=== PATIENT | male | born 2000 | race Caucasian/White ===

== ENCOUNTER 2018-07-29 18:11 | Emergency (ER) | payer BC, OTHER ==
[~2018-07-29] VITALS: Ht 172.7 cm; Wt 64.4 kg
[~2018-07-29 18:11] MED LIST: AMOX500C2 PO
--- OUTSIDE RECORDS SUMMARY | 2018-07-29 18:15 | XMS REPORT | Continuity of Care Document ---
Author Organization Unknown Address Unknown Allergies There is no data. Medications There is no data. Problems Date Dx Coded Attending Type Code Diagnosis Diagnosed By 05/02/2008 381.4 OTITIS MEDIA NONSUPPURATIVE RIGHT EAR 05/02/2008 381.4 OTITIS MEDIA NONSUPPURATIVE RIGHT EAR 05/02/2008 LELO ROBISON APRN 381.4 OTITIS MEDIA NONSUPPURATIVE RIGHT EAR 01/22/2009 V20.2 visit for: well child visit 01/22/2009 V20.2 visit for: well child visit 01/22/2009 LELO ROBISON APRN V20.2 visit for: well child visit 03/22/2009 719.44 PAIN IN JOINT, HAND 03/22/2009 719.44 PAIN IN JOINT, HAND 03/22/2009 LELO ROIBSON APRN 719.44 PAIN IN JOINT, HAND 06/17/2009 684 IMPETIGO 06/17/2009 684 IMPETIGO 06/17/2009 LELO ROBISON APRN 684 IMPETIGO 01/21/2010 V03.89 MENINGOCOCCAL VACCINE 01/21/2010 V05.3 HEPATITIS A VACCINE 01/21/2010 V06.5 DT, TETANUS-DIPHTHERIA [Td] ,TDAP 01/21/2010 V03.89 MENINGOCOCCAL VACCINE 01/21/2010 V05.3 HEPATITIS A VACCINE 01/21/2010 V06.5 DT, TETANUS-DIPHTHERIA [Td] ,TDAP 01/21/2010 LELO ROBISON APRN V03.89 MENINGOCOCCAL VACCINE 01/21/2010 LELO ROBISON APRN V05.3 HEPATITIS A VACCINE 01/21/2010 LELO ROBISON APRN V06.5 DT, TETANUS-DIPHTHERIA [Td] ,TDAP 05/02/2013 LELO ROBISON APRN V04.89 GARDASIL (HPV) DX Procedures Code Description [place] [address] Audiogram (Screening) 03/16/2012 87341 PURE TONE HEARING TEST AIR 05/02/2013 Results There is no data. Encounters ACCT No. Visit Date/Time Discharge Status Pt. Type Provider Facility Loc./Unit Complaint [id number] 05/02/2013 15:30:00 05/02/2013 23:59:59 CLS Outpatient LELO ROBISON APRN [id number] 03/16/2012 14:29:00 03/16/2012 23:59:59 CLS Outpatient [id number] 02/11/2011 14:30:00 02/11/2011 23:59:59 CLS Outpatient [id number] 02/10/2012 15:31:56 RECURRING
--- NOTE | 2018-07-29 19:01 | NUR ---
report given to osmin lindsey
[2018-07-29] MEDS ORDERED: AZITHROMYCIN 250 MG TAB (ZITHROMAX) PO ONE (19:15)
[2018-07-29] MEDS ORDERED: AMOXICILLIN 500 MG (POLYMOX) CAP PO STA (19:27)
[2018-07-29] MEDS ORDERED: AMOX500C2 PO (19:31)
--- NOTE | 2018-07-29 19:31 | ED EENT ---
History of Present Illness General Chief Complaint: Dental Problems/Pain Stated Complaint: DENTAL PAIN Nursing Triage Note: Pt reports having R sided upper and lower wisdom teeth out a couple of days ago. Pt c/o pain and bad taste in mouth. Pt is requesting antibiotics and a work note. Source: patient Exam Limitations: no limitations History of Present Illness Date Seen by Provider: July 29, 2018 Time Seen by Provider: 19:20 Initial Comments This 18-year-old young man presents to the emergency room with complaints of increased pain and a foul taste in his mouth after having the wisdom teeth resected on the right side. This was performed at [facility]. He has run out of his hydrocodone and has experienced increased pain since then. He is concerned that the foul taste in his mouth may represent infection. He is afebrile. Allergies and Home Medications Allergies Coded Allergies: Zoe Known Allergies (Unverified Allergy, Mild, 04/21/09) Home Medications Amoxicillin 500 Mg Capsule, 1 EACH PO BID Prescribed by: REMA OBANDO on 02/23/112122 Amoxicillin 500 Mg Capsule, 1,000 MG PO BID Prescribed by: SHASHI HILL on 07/29/18 193 Patient Home Medication List Home Medication List Reviewed: Yes Review of Systems Review of Systems Constitutional: no symptoms reported Eyes: No Symptoms Reported Ears: No Symptoms Reported Nose: no symptoms reported Mouth: see HPI Throat: no symptoms reported Respiratory: no symptoms reported Cardiovascular: no symptoms reported Gastrointestinal: no symptoms reported Musculoskeletal: no symptoms reported Skin: no symptoms reported Neurological: No Symptoms Reported Hematologic/Lymphatic: No Symptoms Reported Past Zrmdfle-Aembyh-Otqgfb Hx Patient Social History Alcohol Use: Denies Use Recreational Drug Use: No Smoking Status: Never a Smoker 2nd Hand Smoke Exposure: No Recent Foreign Travel: No Contact w/Someone Who Travel: No Recent Infectious Disease Expo: No Recent Hopitalizations: No Seasonal Allergies Seasonal Allergies: No Past Medical History Surgeries: Yes (wisdom teeth) Respiratory: No Cardiac: No Neurological: No Genitourinary: No Gastrointestinal: No Musculoskeletal: No Endocrine: No HEENT: No Cancer: No Psychosocial: No Integumentary: No Blood Disorders: No Adverse Reaction/Blood Tranf: No Physical Exam Vital Signs Vital Signs - First Documented 07/29/18 18:30 Temp 97.4 Pulse 63 Resp 14 B/P (MAP) 148/90 (109) Pulse Ox 97 O2 Delivery Room Air Height, Weight, BMI Height: 5'8.00" Weight: 142lbs. oz. 64.206849sv; BMI Method:Stated General Appearance: WD/WN, no apparent distress Ears: bilateral ear auricle normal, bilateral ear canal normal, bilateral ear TM normal Nose: normal inspection Mouth/Throat: other (well healing extraction sites on the right without evidence of overt abscess or inflammatory changes. 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 He was prescribed amoxicillin and advised to follow-up with his dentist early next week. Departure Impression Primary Impression: Postoperative pain Disposition: 01 HOME, SELF-CARE Condition: Improved Departure-Patient Inst. Decision time for Depature: 19:29 Referrals: NO,LOCAL PHYSICIAN (PCP/Family) Primary Care Physician Patient Instructions: NO INSTRUCTIONS GIVEN Add. Discharge Instructions: Take your antibiotics as prescribed. Contact your dentist's office on Wednesday for further instructions. For pain you may take ibuprofen up to 600 mg every 6 hours and/or Tylenol (acetaminophen) up to 1000 mg every 6 hours as needed. Return to care if you have any worsening of symptoms or develop new symptoms such as fever. All discharge instructions reviewed with patient and/or family. Voiced understanding. Scripts Amoxicillin (Amoxicillin) 500 Mg Capsule 1000 MG PO BID, #14 CAP Prov: SHASHI PANCHAL MD 07/29/18 Work/School Note: Work Release Form Date Seen in the Emergency Department: July 29, 2018 Return to Work: July 29, 2018 Restrictions: No Restrictions SHASHI PANCHAL MD July 29, 2018 19:31
[2018-07-29 19:34] VITALS: BP 135/89
== END 2018-07-29 19:36 | disposition home or self-care (01) ==
LOC: EDUNIT# 18:11 → ER 18:12
DX: G89.18 Other acute postprocedural pain (principal); K08.89 Other specified disorders of teeth and supporting structures; Z98.890 Other specified postprocedural states
CPT/HCPCS: 99283